=== PATIENT | female | born 1940 | race Two or more races ===

== ENCOUNTER 2022-10-28 15:28 | Emergency (ER) | payer OTHER ==
[~2022-10-28] VITALS: Ht 160 cm; Wt 68.0 kg
[2022-10-28] MEDS ORDERED: SYNTHROID75 MCG PO (15:49)
[2022-10-28] MEDS ORDERED: DOLOGEN CAPLET1 EACH PO (21:04)
== END 2022-10-28 21:39 | disposition home or self-care (01) ==
LOC: ER 15:28
DX: S09.8XXA Other specified injuries of head, initial encounter (principal); W18.39XA Other fall on same level, initial encounter; Y93.89 Activity, other specified; Y92.018 Other place in single-family (private) house as the place of occurrence of the external cause; Y99.8 Other external cause status; E03.9 Hypothyroidism, unspecified; I10 Essential (primary) hypertension; G30.8 Other Alzheimer's disease; F02.80 Dementia in other diseases classified elsewhere, unspecified severity, without behavioral disturbance, psychotic disturbance, mood disturbance, and anxiety; M54.9 Dorsalgia, unspecified; R55 Syncope and collapse